=== PATIENT | male | born 1945 | race Caucasian/White ===

== ENCOUNTER 2017-09-06 13:33 | Observation (INO) | payer MEDICARE, BC ==
[2017-09-06 14:52] LABS: Troponin I 0.018 ng/mL (< 0.028)
[2017-09-06] MEDS ORDERED: Eucerin (Mineral Oil/Petrolatum,White) 30 gm Jar TOP PRN (15:21)
[2017-09-06] MEDS ORDERED: Dextrose 5% in Water 1,000 ML IV PRN (15:21)
[2017-09-06] MEDS ORDERED: Mag-Al 1200 mg/1200 mg/30 ML UDCUP PO PRN (15:21)
[2017-09-06] MEDS ORDERED: Acetaminophen 325 MG TAB PO PRN (15:21)
[2017-09-06] MEDS ORDERED: hydrALAZINE 20 MG/ML VIAL SLOW IVP PRN (15:21)
[2017-09-06] MEDS ORDERED: Loperamide HCl 2 MG CAP PO PRN (15:21)
[2017-09-06] MEDS ORDERED: Ondansetron ODT 4 MG TAB PO PRN (15:21)
[2017-09-06] MEDS ORDERED: Zolpidem Tartrate 5 MG TAB PO PRN (15:21)
[2017-09-06] MEDS ORDERED: Milk Of Magnesia 30 ML UDCUP PO PRN (15:21)
[2017-09-06] MEDS ORDERED: Sodium Chloride 0.65% Nasal 44 ML BOT EA NARE PRN (15:21)
[2017-09-06] MEDS ORDERED: Diabetic Tussin 200 MG/10 ML UDCUP PO PRN (15:21)
[2017-09-06] MEDS ORDERED: Artificial Tears 18 DROP/0.9 ML EA EYE PRN (15:21)
[2017-09-06] MEDS ORDERED: Chloraseptic Spray 180 ml Bottle PO PRN (15:21)
[2017-09-06] MEDS ORDERED: Senokot 8.6 MG TAB PO PRN (15:21)
[2017-09-06] MEDS ORDERED: Nitroglycerin 0.4 MG TAB (25 Tab Bottle) PO PRN (15:21)
[2017-09-06] MEDS ORDERED: Loratadine 10 MG TAB PO PRN (15:21)
[2017-09-06] MEDS ORDERED: Dextrose 50% Abboject 50 ML SYRINGE SLOW IVP PRN (15:21)
[2017-09-06] MEDS ORDERED: HYDROcodone/Acetaminophen 5/325 mg Tablet PO PRN (15:21)
[2017-09-06] MEDS ORDERED: Ondansetron HCl/PF 4 MG/2 ML Vial IVP PRN (15:21)
[2017-09-06] MEDS ORDERED: HumaLOG 300 UNITS/3 ML VIAL SC PRN ×2 (15:21)
--- NOTE | 2017-09-06 15:23 | HP ---
PRIMARY CARE PHYSICIAN: [facility] call admission. REASON FOR ADMISSION: Chest discomfort and dyspnea. HISTORY OF PRESENT ILLNESS: A 72-year-old male, who has multiple medical problems including paroxysm al atrial fibrillation, coronary artery disease, chronic systolic congestive heart failure, morbid ob esity, diabetes type 2, gastroesophageal reflux disease, dyslipidemia, COPD, who lives in [place]. H e was going to [place], in between he was having acute onset of chest tightness and shortness of breath. The patient reports that this morning, he was feeling weak and he was not thinking properly. He to ok his morning dose of insulin, but he forgot that whether he took morning dose of insulin or not and that is why he took another dose of insulin around 10:00. Subsequently, his blood sugar was in 120s . He was feeling cold, clammy when he was experiencing chest tightness and shortness of breath. He did not have any motor weakness, but he was feeling somewhat confused. He denies any motor or sensor y symptoms. He was feeling dizziness, but he denies any syncope. He denies any orthopnea, PND, leg swelling. He denies any calf tenderness. He denies any cough, hemoptysis. He denies any pleurisy. He denies any fever or chills. The patient was worried about whether stroke symptoms versus heart attack versus insulin related and that is why he was not sure and he decided to go to local emergency room. On the way to [facility] he was evaluated and all workup was negative and subsequently he was sent to our hospital for rul e out ACS. The patient reports that he normally follows his test technician at [facility] in [facility]. He had several cardiac catheterizations and he was told that he has one blood vessel blocked that they c annot do any stenting and only medical therapy was advised. The patient is on optimum medical therap y. Currently, he is chest pain free. He is on room air, saturating normal. His vitals are stable i n the emergency room. He denies any edema of lower extremity. He denies any orthopnea, PND. He denies any nausea or vomit ing. He denies any hematochezia, melena, or abdominal pain. REVIEW OF SYSTEMS: The following complete review of systems was negative, unless otherwise mentioned in the HPI or below: Constitutional: Weight loss or gain, ability to conduct usual activities. Skin: Rash, itching. Eyes: Double vision, pain. ENT/Mouth: Nose bleeding, neck stiffness, pain, tenderness. Cardiovascular: Palpitations, dyspnea on exertion, orthopnea. Respiratory: Shortness of breath, wheezing, cough, hemoptysis, fever or night sweats. Gastrointestinal: Poor appetite, abdominal pain, heartburn, nausea, vomiting, constipation, or diarr hea. Genitourinary: Urgency, frequency, dysuria, nocturia. Musculoskeletal: Pain, swelling. Neurologic/Psychiatric: Anxiety, depression. Allergy/Immunologic: Skin rash, bleeding tendency. Please see my HPI for pertinent positive and negative. All other review of system reviewed and negat gena except as mentioned in the HPI. PAST MEDICAL HISTORY: Coronary artery disease, chronic systolic congestive heart failure, history of AK, peripheral vascular disease, paroxysmal atrial fibrillation, diabetes type 2, gastroesophageal r eflux disease, morbid obesity, hypertension, COPD/asthma, and diabetes type 2 on insulin. PAST SURGICAL HISTORY: Vein surgery, pacemaker placement, coronary artery bypass grafting, several c ardiac catheterizations. PAST PSYCHIATRIC HISTORY: Reviewed and negative. SOCIAL HISTORY: Patient is and lives at home with family in [place]. Patient is a former oker. He quit smoking several years ago. He denies any alcohol abuse. He denies any other illicit drug abuse. FAMILY HISTORY: Positive for diabetes, hypertension, heart disease among several family members. ALLERGIES: PENICILLIN. CURRENT HOME MEDICATIONS: Nitroglycerin 0.4 mg sublingual p.r.n. for chest pain, Lantus 60 units twi ce daily, NovoLog 26 units 3 times daily, metformin 1500 mg p.o. daily in the morning and 500 mg in e vening, Lasix 120 mg p.o. daily in morning, Plavix 75 mg p.o. daily, potassium chloride 10 mEq p.o. d aily, losartan 12.5 mg p.o. daily, Imdur 40 mg twice daily, omeprazole 20 mg twice daily, Cardizem CD 120 mg twice daily, metoprolol tartrate 100 mg twice daily, Crestor 40 mg p.o. at bedtime, aspirin 8 1 mg p.o. daily, Atrovent nasal spray p.r.n. basis, fish oil 1000 mg p.o. daily, and vitamin B12 at 1 000 mcg p.o. daily. EMERGENCY ROOM COURSE: Patient is given aspirin 243 mg at [facility]. PHYSICAL EXAMINATION: VITAL SIGNS: Currently in our emergency room, blood pressure 136/64, pulse 67, respiratory rate 18, temperature 98.6, saturation 100% on room air, weight 113.4 kilograms. GENERAL: Patient is currently alert, awake, no obvious acute distress. HEENT: Head: Normocephalic, atraumatic. Eyes: Pupils round, reactive to light. Extraocular muscl e intact. ENT: Oropharynx within normal limits. Moist mucous membranes. No oral lesion, no pharyngeal erythe ma, no exudate. NECK: Supple, no JVD, no thyromegaly, no carotid bruit, no jugular venous distention. LUNGS: Clear to auscultation without any rhonchi or rales. CARDIAC: S1 and S2 appears regular. No murmur, no gallop, no rub. ABDOMEN: Morbid obesity present. Bowel sounds present, nontender, nondistended. No organomegaly, n o mass, no suprapubic tenderness. BACK: Unremarkable, no CVA tenderness. EXTREMITIES: Upper extremity passive movement of all joints are normal. Lower extremities: Trace l ower extremity edema noted. Good distal pulsation, no calf tenderness. SKIN: No skin rash. HEMATOLOGICAL: No lymphadenopathy. PSYCHIATRIC: Normal affect. NEUROLOGIC: Nonfocal examination. Patient is alert, oriented x3. Cranial nerves II-XII intact. Mo tor 5/5 in all 4 limbs. Sensation intact. Gait normal. Reflexes symmetrical. No cerebellar sign. SIGNIFICANT LABORATORY DATA: EKG showing pacemaker rhythm, nonspecific ST-T changes. Chest x-ray ba sed on my review, no acute cardiopulmonary process. CBC: WBC 9.1, hemoglobin 15.0, platelet 294. B MP: Sodium 142, potassium 4.0, chloride 101, carbon dioxide 23, anion gap 22, BUN 20, creatinine 1.4 3, glucose 90, calcium 10.4. LFT: AST 33, ALT 36, alkaline phosphatase 96, albumin 4.7, lipase 25. CK 72, CK-MB 1.5, troponin 0.026. BNP 19.7. ASSESSMENT AND PLAN: 1. Chest pain/chest tightness, rule out acute coronary syndrome. EKG is nonspecific. Cardiac enzym e is negative. The patient does have coronary artery disease as well as a coronary artery bypass gra ft history and several cardiac catheterizations and he was advised to continue medical therapy. The patient personally prefers to follow up with his own test technician. Once rule out acute coronary synd gretel, he does not want to go for any kind of stress testing because he cannot tolerate stress testing in the past. He will make appointment with his test technician on . At this point, we will ke ep him in observation. I will check D-dimer to rule out any thromboembolic disorder. If D-dimer is elevated, then we will do ventilation perfusion scan though probability of thromboembolic disorder is extremely low. We will monitor on telemetry floor. We will check lipid profile for risk stratifica tion. We will continue his elected home medication. 2. Dizziness, diaphoresis, I am suspecting from his double dose with insulin, his blood sugar was ve ry low when he went to [facility]. We will monitor his blood sugar, we will hold on his l annie-acting insulin. At this point, we will only cover with insulin as per sliding scale and dependin g upon his blood sugar, he will resume upon discharge all his previous medication regimen. We will a lso continue with metformin as per home dosage. 3. Coronary artery disease. Patient is on currently optimum medical therapy. We will continue aspi rin 81 mg p.o. daily, Plavix 75 mg p.o. daily, losartan 12.5 mg p.o. daily, isosorbide dinitrate 40 m g twice daily, metoprolol 100 mg twice daily. 4. Paroxysmal atrial fibrillation. Continue Cardizem CD 120 mg p.o. twice daily along with aspirin and Plavix for anticoagulation therapy. 5. Chronic congestive heart failure, likely systolic. Currently, patient is euvolemic. We will con tinue Lasix 120 mg p.o. daily along with other medication. We will also continue to replace potassiu m chloride 10 mEq p.o. daily. 6. Diabetes type 2 as mentioned above, we will hold on his long-acting insulin and we will only [place] tor with sliding scale. If blood sugar goes up, then we will resume his home medication. 7. Hypertension. Continue losartan, Lasix, isosorbide dinitrate, metoprolol, Cardizem as per his [facility] dosage. 8. Dyslipidemia. Continue Crestor 40 mg p.o. at bedtime and check lipid profile tomorrow morning. 9. Deep venous thrombosis prophylaxis not needed because we are expecting discharge in 24 hours. 10. Gastrointestinal prophylaxis, Protonix 40 mg p.o. daily. 11. Gastroesophageal reflux disease. We will continue Protonix 40 mg p.o. daily. 12. Chronic obstructive pulmonary disease/ asthma. We will continue DuoNeb therapy q.6 hourly p.r.n . basis. CODE STATUS: The patient is FULL CODE. The patient's is surrogate decision maker. Disposition plan within 24 hours. Plan of care discussed with the patient and other family member at bedside in the emergency room in detail.
[2017-09-06 16:12] VITALS: BMI 39.2
[2017-09-06] MEDS: Metoprolol Tartrate 25 MG TAB PO SCH (20:13)
[2017-09-06] MEDS: Isosorbide Dinitrate 20 MG TAB PO SCH (20:14)
[2017-09-06] MEDS ORDERED: metFORMIN 500 MG TAB PO SCH (21:00)
[2017-09-06] MEDS ORDERED: Rosuvastatin 20 MG TAB PO SCH (21:00)
[2017-09-07 04:25] VITALS: TEMP 97.5
[2017-09-07 04:43] LABS: #Basophils 0.1 thou/uL (0.0-0.2); #Eosinphils 0.3 thou/uL (0.0-0.7); #Lymphocytes 1.5 thou/uL (1.20-3.40); #Monocytes 0.7 thou/uL (0.11-0.59); %Basophils 1.2 % (0.0-1.0); %Eosinophils 4.2 % (0.0-10.0); %Lymphocytes 22.5 % (21.0-51.0); Hemoglobin 13.8 g/dL (14.0-18.0); Mean Corpuscular HGB CONC 34.5 g/dL (32.0-36.0); Mean Corpuscular Hemoglobin 30.8 pg (27.0-31.0); Mean Corpuscular Volume 89.2 fL (78.0-98.0); Mean Platelet Volume 7.4 fL (7.4-10.4); Platelet Count 221 thou/uL (130-400); RBC Distribution Width 12.3 % (11.5-14.5); Red Blood Cell (RBC) Count 4.48 mill/uL (4.70-6.10); White Blood Cell (WBC) Count 6.6 thou/uL (4.8-10.8)
[2017-09-07 05:10] LABS: Anion Gap 13 mmol/L (10-20); BUN (Urea Nitrogen) 18 mg/dL (8.4-25.7); Calc. Creatinine Clearance 80 mL/min (70-130); Calcium 9.9 mg/dL (7.8-10.44); Carbon Dioxide 27 mmol/L (23-31); Cardiac Risk 3.9 (Less than 4.5); Chloride 101 mmol/L (98-107); Cholesterol 149 mg/dl (< 200 Desired); Estimated GFR-MDRD 52; Glucose 197 mg/dL (83-110); HDL Cholesterol 38 mg/dL (>60 Neg Risk); LDL Cholesterol, Calculated 67 mg/dL; Potassium 3.9 mmol/L (3.5-5.1); Sodium 137 mmol/L (136-145); Triglycerides 218 mg/dL (Less than 150)
[2017-09-07] MEDS ORDERED: Furosemide 80 MG TAB PO SCH (07:30)
[2017-09-07] MEDS ORDERED: metFORMIN 500 MG TAB PO SCH (08:00)
[2017-09-07 08:09] VITALS: BP 126/59
[2017-09-07] MEDS: Metoprolol Tartrate 25 MG TAB PO SCH (08:47)
[2017-09-07] MEDS: Isosorbide Dinitrate 20 MG TAB PO SCH (08:48)
[2017-09-07] MEDS ORDERED: Losartan 25 MG TAB PO SCH (09:00)
[2017-09-07] MEDS ORDERED: Fish Oil 1,000 MG CAP PO SCH (09:00)
[2017-09-07] MEDS ORDERED: Clopidogrel Bisulfate 75 MG TAB PO SCH (09:00)
--- NOTE | 2017-09-07 11:36 | DIS ---
PRIMARY CARE PHYSICIAN: [facility] call admission. DATE OF ADMISSION: 09/06/2017 DATE OF DISCHARGE: 09/07/2017 DISCHARGE DISPOSITION: Home. PRIMARY DISCHARGE DIAGNOSIS: Chest pain, ruled out acute coronary syndrome. SECONDARY DISCHARGE DIAGNOSES: Paroxysmal atrial fibrillation, obesity with BMI 38, hypertension, ga stroesophageal reflux disease, dyslipidemia, diabetes type 2, chronic obstructive pulmonary disease, chronic systolic heart failure, coronary artery disease. PRIMARY PROCEDURE/OPERATION: None. RADIOLOGICAL INVESTIGATION: The patient had chest x-ray done which was unremarkable. SIGNIFICANT LABORATORY DATA: WBC 6.6, hemoglobin 13.8, platelet 221. D-dimer 0.37. Sodium 137, pot assium 3.9, BUN 18, creatinine 1.35, glucose 197, calcium 9.9. Triglyceride 218, cholesterol 149, LD L 67. Troponin 0.030. DISCHARGE MEDICATIONS: Aspirin 81 mg p.o. daily, Plavix 75 mg p.o. daily, vitamin B12 1000 mcg every 28 days, Cardizem-CD 120 mg p.o. b.i.d., fish oil 3000 mg p.o. daily, Lasix 120 mg p.o. daily, NovoL og insulin 34 units subcu a.c., Lantus insulin 74 units subcu b.i.d., Isordil 40 mg p.o. b.i.d., Coz aar 25/12.5 1 tablet daily, metformin 1000 mg in the evening and 500 mg in the morning, metoprolol ta rtrate 100 mg p.o. b.i.d., nitroglycerin 0.4 mg sublingual p.r.n., omeprazole 20 mg p.o. b.i.d., pota ssium chloride 10 mEq p.o. daily, Crestor 40 mg p.o. at bedtime. CONTRAINDICATIONS: None. CODE STATUS: FULL CODE. INPATIENT CONSULTANTS: None. ALLERGIES: PENICILLIN. DISCHARGE PLAN: Post hospital, the patient is going to follow up with his cloud physicist tomorrow. HOSPITAL COURSE: The patient is a 72-year-old male who normally follows at [facility] in [facility]. He lives in [place]. He was going to [place] and on the way, he was having chest discomfort and that is why he was taken to [facility] where he was evaluated and ruled out acute coronary syndrome and subsequently he was sent to our emergency room for further evaluation. We did serial c ardiac enzymes that were negative. Only one troponin was indeterminant range. This patient reports that he had several cardiac catheterizations in the past and he was told by his cloud physicist that he only needs medical therapy. He has CABG history. The patient is on currently optimal medical therap y. The patient reports that he cannot tolerate a stress test and he does not want to go for stress t est. We did a D-dimer and that was negative and that is why he did not require any further testing. We did serial cardiac enzyme and ruled out acute coronary syndrome. The patient also did not want t o go for echocardiography while in hospital because he has appointment with his cloud physicist tomorrow and he will prefer everything to be done by his cloud physicist. He is completely asymptomatic current ly, while in hospital, PHYSICAL EXAMINATION: The patient is seen and examined at bedside today. Plan of care discussed wi th the patient and his . VITAL SIGNS: Currently, temperature 97.5, pulse 60, respiratory rate 16, saturation 96% on room air, blood pressure 126/59, weight 248 pounds. GENERAL: The patient is currently alert, awake, no obvious acute distress. HEAD: Normocephalic, atraumatic. EYES: Pupils round, reactive to light. Extraocular muscle intact. ENT: Oropharynx within normal limits. Moist mucous membranes. LUNGS: Clear, without any rhonchi. CARDIAC: S1, S2 regular without any murmur. ABDOMEN: Soft and benign. Obesity present. EXTREMITIES: No edema. NEUROLOGIC: Nonfocal examination.
--- NOTE | 2017-09-10 14:23 | EKG ---
Test Reason : CHEST PAIN Blood Pressure : / mmHG Vent. Rate : 065 BPM Atrial Rate : 065 BPM P-R Int : 246 ms QRS Dur : 078 ms QT Int : 408 ms P-R-T Axes : 018 022 130 degrees QTc Int : 424 ms Atrial-paced rhythm with prolonged AV conduction Abnormal ECG Confirmed by STEPH JORDAN ([id number]), copy editor EFRAIN GAMEZ ([id number] on 09/10/2017 2:23:00 PM Referred By: Confirmed By:STEPH JORDAN
== END 2017-09-07 10:13 | disposition home or self-care (01) ==
LOC: ERS 13:33 → 2SW 15:21
PROVIDERS: ADMIT Internal Medicine; ATTEND Internal Medicine
DX: R07.89 Other chest pain (principal); I48.0 Paroxysmal atrial fibrillation; I25.10 Atherosclerotic heart disease of native coronary artery without angina pectoris; I11.0 Hypertensive heart disease with heart failure; I50.22 Chronic systolic (congestive) heart failure; E11.9 Type 2 diabetes mellitus without complications; K21.9 Gastro-esophageal reflux disease without esophagitis; E78.5 Hyperlipidemia, unspecified; J44.9 Chronic obstructive pulmonary disease, unspecified; I25.2 Old myocardial infarction; E66.01 Morbid (severe) obesity due to excess calories; Z68.38 Body mass index [BMI] 38.0-38.9, adult; Z87.891 Personal history of nicotine dependence; Z79.4 Long term (current) use of insulin; Z79.82 Long term (current) use of aspirin; Z79.02 Long term (current) use of antithrombotics/antiplatelets; Z79.899 Other long term (current) drug therapy; Z88.0 Allergy status to penicillin; Z95.0 Presence of cardiac pacemaker; Z95.1 Presence of aortocoronary bypass graft
CPT/HCPCS: 80048; 80061; 82962; 84484; 85025; 85379; 93005; 99285; G0378; 36415; 36416